=== PATIENT | male | born 1935 | race Caucasian/White ===

== ENCOUNTER 2017-05-19 08:25 | Emergency (ER) | payer MEDICARE ==
[2017-05-19 09:09] LABS: ALBUMIN 3.2 g/dL (3.5-5.0); ALKALINE PHOSPHATASE 64 U/L (38-126); ALT 21 U/L (21-72); AST 19 U/L (17-59); BILIRUBIN, TOTAL 0.5 mg/dL (0.2-1.3); BLOOD UREA NITROGEN 21 mg/dL (9-20); CALCIUM 8.5 mg/dL (8.4-10.2); CHLORIDE 104 mmol/L (98-107); GLUCOSE 170 mg/dL (70-100); POTASSIUM 4.1 mmol/L (3.5-5.1); SODIUM 137 mmol/L (137-145)
[2017-05-19 09:10] LABS: INR 1.1; PARTIAL THROMBOPLASTIN TIME 36 sec (24-38)
[2017-05-19 09:54] LABS: HEMATOCRIT 27.2 % (42.0-54.0); HEMOGLOBIN 9.1 g/dL (14.0-18.0); MEAN CORPUS. HGB CONCENTRATION 33.5 g/dL (32.0-36.0); MEAN CORPUSCULAR HEMOGLOBIN 30.1 pg (29.0-35.0); RED BLOOD COUNT 3.03 X 10^6uL (4.20-6.10); RED CELL DISTRIBUTION WIDTH 15.8 % (11.5-14.5); WHITE BLOOD COUNT 5.5 X 10^3uL (3.9-10.7)
[2017-05-19 09:55] LABS: BAND% (Manual) 11 % (0.0-1.0); EOSINOPHIL % (Manual) 6 % (0.0-6.0); LYMPHOCYTE % (Manual) 6 % (20.0-40.0); MEAN PLATELET VOLUME 11.8 fL (7.4-10.4); MONOCYTE % (Manual) 8 % (2.0-10.0); NEUTROPHIL % (Manual) 69 % (54.0-75.0); PLATELET COUNT 13 X 10^3uL (130-440); PLATELET ESTIMATE DECREASED
[2017-05-19] MEDS ORDERED: NORMAL SALINE 250 ML IV ONE (10:44)
[2017-05-19 11:52] LABS: ABO GROUP TYPE O; ANTIBODY SCREEN NEGATIVE; RH TYPE POSITIVE
--- NOTE | 2017-05-19 11:52 | ER NURSING DOCUMENTATION ---
Nurse's Notes [facility] Name:Julio Rodrigues Age:81 yrs Sex:Male :1935 Arrival Date:05/19/2017 Time:08:25 Bed4 Private MD:Ravi Cash Diagnosis:GI Bleeding;Thrombocytopenia Presentation: 05/19 08:44 Presenting complaint: Patient states: Patient reports black stools and coffee ground lp emesis. Transition of care: Home. 08:44 Acuity: MARII 3 lp 08:44 Method Of Arrival: Private Vehicle lp 11:02 Acuity: MARII 2 lpr Triage Assessment: 09:10 General: Appears in no apparent distress, Behavior is appropriate for age. Pain: Denies lp pain. Historical: - Allergies: Azithromycin; Aspirin; Erythromycin; Levemir; Pollen; Mold; Fruit; Kiwi (Actinidia Chinensis); - Home Meds: 1. alprazolam 0.25 mg oral tab 1 tab At HS 2. ascorbic acid 500 mg oral tab 3. Creon 6,000-19,000 -30,000 unit oral cpDR 2 caps with meals and 2 capsules with each snack for Pancreatic Insufficiency 4. cyancobalamin 5. Lantus 100 unit/mL subcutaneous crtg 11 units daily for Diabetes Mellitus 6. Pancreaze 10,500-25,000 -43,750 unit oral cpDR 1 cap with meals and 1 capsule with each snack for Pancreatic Insufficiency 7. losartan 25 mg oral tab 1 tab once daily 8. metformin 500 mg oral tr24 1 tab BID for Type 2 Diabetes Mellitus 9. tramadol 50 mg oral tab 1 tab every 6 hours for Pain 10. multivitamin oral tab 1 tab daily - PMHx: Vitamin B12 deficiency; DIABETES - IDDM; GERD; Chronic Diarrhea; Pancreatectomy; Oropharyngeal Dysphagia; Pancreatic Insufficiency; Prostate Cancer; Hypertension; UTI; Dysuria; Neuroendocrine Carcinoma; Prostate Cancer; Complicated Migraine; Ocular Migraine; - PSHx: Prostatectomy; Whipple; - Tetanus: < 10 years. - Ebola Screening: : Patient negative for fever greater than or equal to 101.5 degrees Fahrenheit, and additional compatible Ebola Virus Disease symptoms. Patient denies exposure to infectious person. Patient denies travel to an Ebola-affected area in the 21 days before illness onset. . - Immunization history: Pneumococcal vaccine is up to date, Flu Vaccine < 1 year. - Social history: Smoking status: Patient states was never smoker of tobacco. Screenin:10 Infectious Disease Risk None. Abuse screen: Denies threats or abuse. Denies injuries lp from another. Nutritional screening: No deficits noted. Assessment: 09:10 See Triage Assessment done by same RN. lp 09:30 General: Appears in no apparent distress. Pain: Denies pain. Neuro: No deficits noted. lp EENT: No deficits noted. Cardiovascular: Capillary refill < 3 seconds Pulses are all present. Respiratory: No deficits noted. GI: Reports 1 episode of coffee ground emesis and several black tarry stools for 2 days. : No deficits noted. 11:36 Reassessment: No changes from previously documented assessment. lp Vital Signs: 08:32 BP 129 / 67; Pulse 84; Resp 16; Temp 97.2(TE); Pulse Ox 96% on R/A; Weight 78.93 kg; lp Height 5 ft. 10 in. (177.80 cm); Pain 0/10; 09:30 BP 105 / 70 (auto/); lp 09:34 Pulse 72 MON; Resp 22; Pulse Ox 97% ; lp 10:02 BP 117 / 67 (auto/); lp 10:04 Pulse 71 MON; Resp 13; Pulse Ox 96% ; lp 10:30 BP 124 / 75 (auto/); lp 10:34 Pulse 76 MON; Resp 18; Pulse Ox 97% ; lp 11:00 BP 138 / 78 (auto/); lp 11:06 BP 140 / 72 (auto/); lp 11:09 Pulse 70 MON; Resp 16; Pulse Ox 94% ; lp 11:21 BP 129 / 78 (auto/); lp 11:24 Pulse 76 MON; Resp 16; lp 08:32 Body Mass Index 24.97 (78.93 kg, 177.80 cm) lp ED Course: 08:27 Patient arrived in ED. ds 08:27 Ravi Cash MD is Private Physician. ds 08:27 Tal Hatch MD is Attending Physician. jm 08:[address] Hatch notified. lp 08:44 Angelica Martins, EMELINA is Primary Nurse. lp 08:44 Triage completed. lp 09:10 Valuables Remains with patient Patient has correct armband on for positive lp identification. Placed in gown. Bed in low position. Call light in reach. 09:10 Inserted saline lock: 20 gauge in left antecubital area and blood collected. lp 09:14 Cardiac Monitoring On for Nurse Monitoring only. Pulse Ox - RN Monitoring Only NIBP On lp - RN Monitoring Only. Administered Medications: 11:08 Drug: Transfuse 2 packs of platelets 2 packets; Route: IV; Rate: calculated rate; Site: lp left antecubital; 11:37 Follow up: Response: No adverse reaction; No change in condition; IV Status: Completed lp infusion; IV Intake: 296ml Medication: 11:08 Blood products: See transfusion record. lp Point of Care Testing: Guaiac: 09:58 Stool Guaiac: Positive; Stool Hemoccult Control: Pass; lp Intake: 11:37 IV: 296ml; Total: 296ml. lp Outcome: 10:34 ER care complete, transfer ordered by . shira 11:27 [facility] Patient's lp face sheet was faxed to accepting facility. Face Sheet included patient's name, address, age, gender, contact information and insurance information. 11:27 Condition: stable 11:27 Report given to Report given to [facility] EMELINA Arreola 11:27 Instructed on need for transfer 11:51 Patient left the ED. lp Signatures: Angelica Martins RN RN lp Srot, Lisa, Reg Reg Tal Trejo MD MD jm Roberts, Leslie, RN RN lpr
--- NOTE | 2017-05-19 11:52 | ER PHYSICIAN DOCUMENTATION ---
Physician Documentation [facility] Name:Julio Rodrigues Age:81 yrs Sex:Male :1935 Arrival Date:05/19/2017 Time:08:25 Bed4 Private MD:Ravi Cash ED, John Disposition: 05/19/17 10:34 Transfer ordered to [facility]. Diagnosis are GI Bleeding, Thrombocytopenia. - Reason for transfer: Specialty. - Accepting physician is Dr. Coon . - Condition is Serious. - Problem is new. - Symptoms are unchanged. COBRA Form completed? Yes Transfer - Mode of Transportation Ambulance HPI: 05/19 09:48 This 81 yrs old Male presents to ER via Private Vehicle with complaints of GI jm Bleeding. 09:48 The patient presents to the emergency department with rectal bleeding, a small amount, jm dark red blood with bowel movement melena. Onset: The symptom(s)/episode began/occurred today. Abdominal pain: yesterday but none today . Modifying factors: the symptoms are aggravated by nothing. Associated signs and symptoms: Pertinent negatives: diarrhea, dizziness at rest, dizziness when standing, near-syncope. Severity of symptoms: in the emergency department the symptoms are unchanged. The patient has not experienced similar symptoms in the past. The patient has been recently seen by a physician:. 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 Pt otherwise feels fine. He had a normal CBC yesterday, but Dr. Cash wanted him seen in the ER. . Historical: - Allergies: Azithromycin; Aspirin; Erythromycin; Levemir; Pollen; Mold; Fruit; Kiwi (Actinidia Chinensis); - Home Meds: 1. alprazolam 0.25 mg oral tab 1 tab At HS 2. ascorbic acid 500 mg oral tab 3. Creon 6,000-19,000 -30,000 unit oral cpDR 2 caps with meals and 2 capsules with each snack for Pancreatic Insufficiency 4. cyancobalamin 5. Lantus 100 unit/mL subcutaneous crtg 11 units daily for Diabetes Mellitus 6. Pancreaze 10,500-25,000 -43,750 unit oral cpDR 1 cap with meals and 1 capsule with each snack for Pancreatic Insufficiency 7. losartan 25 mg oral tab 1 tab once daily 8. metformin 500 mg oral tr24 1 tab BID for Type 2 Diabetes Mellitus 9. tramadol 50 mg oral tab 1 tab every 6 hours for Pain 10. multivitamin oral tab 1 tab daily - PMHx: Vitamin B12 deficiency; DIABETES - IDDM; GERD; Chronic Diarrhea; Pancreatectomy; Oropharyngeal Dysphagia; Pancreatic Insufficiency; Prostate Cancer; Hypertension; UTI; Dysuria; Neuroendocrine Carcinoma; Prostate Cancer; Complicated Migraine; Ocular Migraine; - PSHx: Prostatectomy; Whipple; - Tetanus: < 10 years. - Ebola Screening: : Patient negative for fever greater than or equal to 101.5 degrees Fahrenheit, and additional compatible Ebola Virus Disease symptoms. Patient denies exposure to infectious person. Patient denies travel to an Ebola-affected area in the 21 days before illness onset. . - Immunization history: Pneumococcal vaccine is up to date, Flu Vaccine < 1 year. - Social history: Smoking status: Patient states was never smoker of tobacco. ROS: 09:49 Constitutional: Negative for fatigue, fever. jm 09:49 Abdomen/GI: Positive for abdominal cramps, black/tarry stool. 09:49 Skin: Negative for pallor, rash. 09:49 All other systems are negative. Exam: 09:51 Constitutional: The patient appears alert, awake, comfortable. 09:51 Eyes: Periorbital structures: appear normal, Conjunctiva: normal. 09:51 ENT: Mouth: is normal, Voice: is normal. 09:51 Neck: Thyroid: appears normal, Trachea: is midline with no obvious abnormalities. 09:51 Cardiovascular: Rate: normal, Rhythm: regular. 09:51 Respiratory: Respirations: normal, Breath sounds: are normal. 09:51 Abdomen/GI: Bowel sounds: normal, Palpation: abdomen is soft and non-tender, Rectal exam: Stool: guaiac positive, maroon. Vital Signs: 08:32 BP 129 / 67; Pulse 84; Resp 16; Temp 97.2(TE); Pulse Ox 96% on R/A; Weight 78.93 kg; lp Height 5 ft. 10 in. (177.80 cm); Pain 0/10; 09:30 BP 105 / 70 (auto/); lp 09:34 Pulse 72 MON; Resp 22; Pulse Ox 97% ; lp 10:02 BP 117 / 67 (auto/); lp 10:04 Pulse 71 MON; Resp 13; Pulse Ox 96% ; lp 10:30 BP 124 / 75 (auto/); lp 10:34 Pulse 76 MON; Resp 18; Pulse Ox 97% ; lp 11:00 BP 138 / 78 (auto/); lp 11:06 BP 140 / 72 (auto/); lp 11:09 Pulse 70 MON; Resp 16; Pulse Ox 94% ; lp 11:21 BP 129 / 78 (auto/); lp 11:24 Pulse 76 MON; Resp 16; lp 08:32 Body Mass Index 24.97 (78.93 kg, 177.80 cm) lp MDM: 08:27 Patient medically screened. 10:37 Differential diagnosis: hemorrhagic shock, GI bleed. Data reviewed: vital signs, nurses notes, old medical records, lab test result(s), and as a result, I will *Transfer Patient. Counseling: I had a detailed discussion with the patient and/or guardian regarding: the historical points, exam findings, and any diagnostic results supporting the discharge/admit diagnosis, lab results, the need to transfer to another facility. Physician consultation: Dr. Coon. ED course: Pt here for GI bleed. Maroon colored stools noted w drop of H&H and severe thrombocytopenia. [facility] happens to have platelets that match his blood type here that we can transfuse. Pt consented to blood. Dr. Loya or [facility] says to go ahead and transfuse. Dr. Coon, hospitalist has accepted the pt. . 05/19 09:11 Order name: PROTIME/INR; Complete Time: 10:11 [facility] 05/19 09:11 Order name: PARTIAL THROMBOPLASTIN TIME; Complete Time: 10:11 [facility] 05/19 09:12 Order name: BASIC METABOLIC PANEL; Complete Time: 10:11 [facility] 05/19 09:12 Order name: HEPATIC PANEL; Complete Time: 10:11 [facility] 05/19 09:57 Order name: CBC W/ MANUAL DIFFERENTIAL; Complete Time: 10:03 [facility] 05/19 11:52 Order name: ABO GROUP [facility] 05/19 11:52 Order name: RH TYPE [facility] 05/19 11:52 Order name: ANTIBODY SCREEN [facility] 05/19 11:52 Order name: PLT PHERESIS PRODUCT [facility] 05/19 08:28 Order name: Continuous Cardiac Monitoring; Complete Time: 09:14 05/19 08:28 Order name: Hemocult Stool; Complete Time: :58 05/19 08:28 Order name: I & O; Complete Time: : 05/19 08:28 Order name: NPO; Complete Time: : 05/19 08:28 Order name: Pulse Ox Continuous; Complete Time: : Dispensed Medications: 11:08 Drug: Transfuse 2 packs of platelets 2 packets; Route: IV; Rate: calculated rate; Site: lp left antecubital; 11:37 Follow up: Response: No adverse reaction; No change in condition; IV Status: Completed lp infusion; IV Intake: 296ml Point of Care Testing: Guaiac: :58 Stool Guaiac: Positive; Stool Hemoccult Control: Pass; lp Signatures: Angelica Martins, RN RN lp Tal Hatch MD MD
== END 2017-05-19 11:52 | disposition short-term general hospital (02) ==
LOC: ER 08:25
DX: K92.1 Melena (principal); D69.6 Thrombocytopenia, unspecified; D64.9 Anemia, unspecified; I10 Essential (primary) hypertension; C7A.8 Other malignant neuroendocrine tumors; Z85.46 Personal history of malignant neoplasm of prostate; E11.9 Type 2 diabetes mellitus without complications; Z79.899 Other long term (current) drug therapy; Z79.4 Long term (current) use of insulin; Z92.3 Personal history of irradiation; Z99.89 Dependence on other enabling machines and devices; Z74.3 Need for continuous supervision
CPT/HCPCS: 36430; 80048; 80076; 85007; 85027; 85610; 85730; 86850; 86900; 86901; 99285; 99292; A0425; A0427; J7050; P9020